=== PATIENT | female | born 1980 | race Caucasian/White ===

== ENCOUNTER 2019-03-16 12:36 | Inpatient (IN) | payer MEDICAID ==
[~2019-03-16] VITALS: Ht 154.9 cm; Wt 112.0 kg
[2019-03-16 13:37] LABS: MEAN CORPUSCULAR HEMOGLOBIN 28.3 pg (27.0-34.8); MEAN CORPUSCULAR HGB CONC 32.2 g/dL (32.4-35.8); MEAN PLATELET VOLUME 8.1 fL (7.4-10.4); PLATELET COUNT 385 x10^3/uL (130-400)
[2019-03-16 13:50] LABS: ALANINE AMINOTRANSFERASE 32 U/L (12-78); ALBUMIN 2.5 g/dL (3.4-5.0); ANION GAP 8 mmol/L (5-15); CALCIUM 9.5 mg/dL (8.5-10.1); CHLORIDE 106 mmol/L (98-107); CREATININE 0.51 mg/dL (0.55-1.02)
[2019-03-16 13:52] LABS: ALKALINE PHOSPHATASE 141 U/L (45-117); BILIRUBIN,TOTAL 0.3 mg/dL (0.2-1.0); TOTAL PROTEIN 6.7 g/dL (6.4-8.2)
[2019-03-16 13:58] LABS: BILIRUBIN, DIRECT < 0.1 mg/dL (0.1-0.2)
[2019-03-16] MEDS ORDERED: ASPI-515 PO (14:00)
[2019-03-16] MEDS ORDERED: PREN1TAB60 PO (14:00)
[2019-03-16] MEDS ORDERED: CALC166. PO (14:05)
[2019-03-16] MEDS ORDERED: b12 PO (14:06)
[2019-03-16] MEDS ORDERED: OMEG1CAP6 PO (14:08)
[2019-03-16] MEDS ORDERED: CHOL500020 PO (14:10)
[2019-03-16 14:48] LABS: BASOPHILS # (AUTO) 0.08 x10^3/uL (0-0.1); BASOPHILS % (AUTO) 0 % (0-1); EOSINOPHILS # (AUTO) 0.38 x10^3/uL (0-0.4); EOSINOPHILS % (AUTO) 2 % (1-7); LYMPHOCYTES # (AUTO) 3.11 x10^3/uL (1-3.4); LYMPHOCYTES % (AUTO) 17 % (22-44); MD SCAN; MONOCYTES # (AUTO) 0.71 x10^3/uL (0.2-0.8); MONOCYTES % (AUTO) 4 % (2-9); NEUTROPHILS % (AUTO) 76 % (42-75)
[2019-03-16 15:10] LABS: MICROSCOPIC INDICATED
[2019-03-16 15:18] VITALS: BP 130/65
[2019-03-16] MEDS ORDERED: INSULIN LISPRO 100 UNIT/ML, 3ML VIAL SQ-INSULIN SCH (17:00)
[2019-03-16] MEDS ORDERED: INSULIN GLARGINE 100 UNITS/ML, PEN SQ-INSULIN SCH (21:00)
[2019-03-16] MEDS: INSULIN GLARGINE 100 UNITS/ML, PEN SQ-INSULIN SCH (21:15)
[2019-03-16 21:43] VITALS: BP 133/59
[2019-03-17] MEDS ORDERED: metFORMIN 500 MG TABLET ONE ×2 (07:20→11:52)
[2019-03-17] MEDS: metFORMIN 500 MG TABLET PO SCH ×2 (07:24→11:58)
[2019-03-17 08:09] VITALS: BP 134/63
[2019-03-17] MEDS ORDERED: ASPIRIN 81 MG TABLET CHEW PO SCH (09:00)
[2019-03-17 11:45] LABS: BASOPHILS # (AUTO) 0.03 x10^3/uL (0-0.1); BASOPHILS % (AUTO) 0 % (0-1); EOSINOPHILS # (AUTO) 0.13 x10^3/uL (0-0.4); EOSINOPHILS % (AUTO) 1 % (1-7); LYMPHOCYTES % (AUTO) 18 % (22-44); MD NO; MEAN CORPUSCULAR HEMOGLOBIN 27.9 pg (27.0-34.8); MEAN CORPUSCULAR HGB CONC 32.3 g/dL (32.4-35.8); MEAN CORPUSCULAR VOLUME 86.4 fL (80-100); MEAN PLATELET VOLUME 8.4 fL (7.4-10.4); MONOCYTES % (AUTO) 4 % (2-9); NEUTROPHILS # (AUTO) 10.74 x10^3/uL (1.8-6.8); NEUTROPHILS % (AUTO) 77 % (42-75); PLATELET COUNT 374 x10^3/uL (130-400); RED BLOOD COUNT 4.26 x10^6/uL (3.82-5.3); RED CELL DISTRIBUTION WIDTH 15.5 % (9.6-15.2)
[2019-03-17] MEDS: INSULIN LISPRO 100 UNITS/ML, PEN SQ-INSULIN SCH (16:30)
[2019-03-17] MEDS: INSULIN GLARGINE 100 UNITS/ML, PEN SQ-INSULIN SCH (21:08)
[2019-03-18] MEDS ORDERED: metFORMIN 500 MG TABLET ONE ×2 (07:38→12:16)
[2019-03-18] MEDS: metFORMIN 500 MG TABLET PO SCH ×2 (07:49→12:19)
[2019-03-18] MEDS: PRENATAL VIT/IRON/FA 1 EACH TABLET HOMEMEDPO SCH (08:03)
[2019-03-18] MEDS: ASPIRIN 81 MG TABLET CHEW HOMEMEDPO SCH (08:04)
[2019-03-18] MEDS ORDERED: INSULIN LISPRO 100 UNITS/ML, PEN SQ-INSULIN SCH (10:00)
[2019-03-18] MEDS: INSULIN LISPRO 100 UNIT/ML, 3ML VIAL SQ-INSULIN SCH (12:20)
[2019-03-18] MEDS: INSULIN LISPRO 100 UNITS/ML, PEN SQ-INSULIN SCH (16:24)
[2019-03-18 19:51] VITALS: BP 134/66
[2019-03-18 19:52] VITALS: BP 134/66
[2019-03-19 07:41] LABS: MEAN CORPUSCULAR HEMOGLOBIN 28.2 pg (27.0-34.8); MEAN CORPUSCULAR HGB CONC 32.2 g/dL (32.4-35.8); MEAN CORPUSCULAR VOLUME 87.6 fL (80-100); MEAN PLATELET VOLUME 8.5 fL (7.4-10.4); PLATELET COUNT 348 x10^3/uL (130-400); RED BLOOD COUNT 4.32 x10^6/uL (3.82-5.3); RED CELL DISTRIBUTION WIDTH 15.7 % (9.6-15.2)
[2019-03-19 07:42] LABS: ALANINE AMINOTRANSFERASE 22 U/L (12-78); ALBUMIN 2.4 g/dL (3.4-5.0); ANION GAP 9 mmol/L (5-15); CHLORIDE 105 mmol/L (98-107); CREATININE 0.53 mg/dL (0.55-1.02)
[2019-03-19 07:43] LABS: ALKALINE PHOSPHATASE 147 U/L (45-117); BILIRUBIN,TOTAL 0.3 mg/dL (0.2-1.0); TOTAL PROTEIN 6.5 g/dL (6.4-8.2)
[2019-03-19] MEDS ORDERED: metFORMIN 500 MG TABLET ONE ×2 (08:05→11:51)
[2019-03-19] MEDS ORDERED: ASPIRIN 81 MG TABLET CHEW ONE (08:06)
[2019-03-19] MEDS ORDERED: PRENATAL VIT/IRON/FA 1 EACH TABLET ONE (08:06)
[2019-03-19] MEDS: metFORMIN 500 MG TABLET PO SCH ×2 (08:10→11:58)
[2019-03-19] MEDS: ASPIRIN 81 MG TABLET CHEW HOMEMEDPO SCH (08:10)
[2019-03-19 08:11] LABS: TOTAL PROTEIN,URINE RANDOM < 5 mg/dL (0-12)
[2019-03-19] MEDS: INSULIN LISPRO 100 UNIT/ML, 3ML VIAL SQ-INSULIN SCH ×2 (09:00→11:58)
[2019-03-19 09:20] LABS: BASOPHILS # (AUTO) 0.09 x10^3/uL (0-0.1); BASOPHILS % (AUTO) 1 % (0-1); EOSINOPHILS # (AUTO) 0.29 x10^3/uL (0-0.4); EOSINOPHILS % (AUTO) 2 % (1-7); LYMPHOCYTES # (AUTO) 2.88 x10^3/uL (1-3.4); LYMPHOCYTES % (AUTO) 16 % (22-44); MD SCAN; MONOCYTES # (AUTO) 0.81 x10^3/uL (0.2-0.8); MONOCYTES % (AUTO) 5 % (2-9); NEUTROPHILS # (AUTO) 13.91 x10^3/uL (1.8-6.8); NEUTROPHILS % (AUTO) 77 % (42-75)
[2019-03-19] MEDS: INSULIN LISPRO 100 UNITS/ML, PEN SQ-INSULIN SCH (16:35)
[2019-03-19 20:18] VITALS: BP 168/74
[2019-03-19] MEDS: INSULIN GLARGINE 100 UNITS/ML, PEN SQ-INSULIN SCH (21:16)
[2019-03-20] MEDS ORDERED: metFORMIN 500 MG TABLET ONE ×2 (07:38→12:21)
[2019-03-20] MEDS: metFORMIN 500 MG TABLET PO SCH ×2 (07:40→12:52)
[2019-03-20] MEDS: ASPIRIN 81 MG TABLET CHEW HOMEMEDPO SCH (07:42)
[2019-03-20] MEDS: PRENATAL VIT/IRON/FA 1 EACH TABLET HOMEMEDPO SCH (07:42)
[2019-03-20] MEDS: INSULIN LISPRO 100 UNIT/ML, 3ML VIAL SQ-INSULIN SCH (12:53)
[2019-03-20] MEDS: INSULIN LISPRO 100 UNITS/ML, PEN SQ-INSULIN SCH (16:41)
[2019-03-20] MEDS: INSULIN GLARGINE 100 UNITS/ML, PEN SQ-INSULIN SCH (21:38)
[2019-03-21] MEDS ORDERED: metFORMIN 500 MG TABLET ONE (07:41)
[2019-03-21] MEDS: metFORMIN 500 MG TABLET PO SCH (07:44)
[2019-03-21] MEDS: ASPIRIN 81 MG TABLET CHEW HOMEMEDPO SCH (07:44)
[2019-03-21] MEDS: PRENATAL VIT/IRON/FA 1 EACH TABLET HOMEMEDPO SCH (07:44)
[2019-03-21 07:45] VITALS: BP 126/78
[2019-03-21] MEDS ORDERED: NEWBORN KIT ONE (10:50)
[2019-03-21] MEDS ORDERED: METOCLOPRAMIDE 5 MG/ML, 2ML ONE (10:51)
[2019-03-21] MEDS ORDERED: OXYTOCIN 30U/ 0.9% NaCL 500ML 500 ML ONE ×2 (10:51→15:16)
[2019-03-21] MEDS ORDERED: SODIUM CITRATE/CITRIC ACID 30 ML UDC ONE (10:51)
[2019-03-21] MEDS ORDERED: morphine SULFATE/PF 0.5 MG/ML, 10ML ONE (10:57)
[2019-03-21] MEDS ORDERED: LACTATED RINGERS 1,000 ML IVBOLUS ONE (11:00)
[2019-03-21] MEDS ORDERED: SODIUM CITRATE/CITRIC ACID 30 ML UDC PO ONE (11:00)
[2019-03-21] MEDS ORDERED: EPINEPHRINE 1 MG/ML, 1ML ONE (11:08)
[2019-03-21] MEDS ORDERED: METOCLOPRAMIDE 5 MG/ML, 2ML IV ONE (11:30)
[2019-03-21] MEDS ORDERED: SODIUM CHLORIDE 0.9% 1,000 ML IV SCH (11:30)
[2019-03-21 11:34] LABS: MEAN CORPUSCULAR HEMOGLOBIN 28.3 pg (27.0-34.8); MEAN CORPUSCULAR HGB CONC 32.8 g/dL (32.4-35.8); MEAN CORPUSCULAR VOLUME 86.4 fL (80-100); MEAN PLATELET VOLUME 8.3 fL (7.4-10.4); PLATELET COUNT 344 x10^3/uL (130-400); RED BLOOD COUNT 4.53 x10^6/uL (3.82-5.3); RED CELL DISTRIBUTION WIDTH 16.1 % (9.6-15.2)
[2019-03-21] MEDS ORDERED: LACTATED RINGERS 1,000 ML IV SCH ×2 (11:37→13:21)
[2019-03-21 12:28] LABS: BASOPHILS # (AUTO) 0.05 x10^3/uL (0-0.1); BASOPHILS % (AUTO) 0 % (0-1); EOSINOPHILS % (AUTO) 1 % (1-7); LYMPHOCYTES # (AUTO) 2.77 x10^3/uL (1-3.4); LYMPHOCYTES % (AUTO) 16 % (22-44); MD NO; MONOCYTES # (AUTO) 0.87 x10^3/uL (0.2-0.8); MONOCYTES % (AUTO) 5 % (2-9); NEUTROPHILS # (AUTO) 13.14 x10^3/uL (1.8-6.8); NEUTROPHILS % (AUTO) 78 % (42-75)
[2019-03-21] MEDS ORDERED: EPHEDRINE 50 MG/ML, 1ML ONE (12:31)
[2019-03-21] MEDS ORDERED: OXYTOCIN 10 UNITS/ML, 1ML ONE (12:31)
[2019-03-21] MEDS ORDERED: ONDANSETRON 2MG/ML, 2ML ONE ×4 (12:31→13:28)
[2019-03-21] MEDS ORDERED: WATER-INJECTION,STERILE 10 ML IV ONE (12:31)
[2019-03-21] MEDS ORDERED: GLYCOPYRROLATE 0.2MG/1ML, 5ML ONE (12:31)
[2019-03-21] MEDS ORDERED: CEFAZOLIN 1,000 MG ONE (12:31)
[2019-03-21] MEDS ORDERED: PHENYLEPHRINE 10 MG/ML ONE (12:31)
[2019-03-21] MEDS ORDERED: MORPHINE SULFATE 4 MG/ML, 1ML IVPush PRN (13:30)
[2019-03-21] MEDS ORDERED: DIPH,PERTUSS(ACELL),TET VAC/PF NC IM-VACC PRN (13:30)
[2019-03-21] MEDS ORDERED: SIMETHICONE 80 MG CHEW TAB PO PRN (13:30)
[2019-03-21] MEDS ORDERED: MISOPROSTOL 200 MCG TABLET PR PRN (13:30)
[2019-03-21] MEDS ORDERED: MEASLES,MUMPS&RUBELLA VACC/PF 0.5 ML SQ-VACC PRN (13:30)
[2019-03-21] MEDS ORDERED: ONDANSETRON 2MG/ML, 2ML IV PRN (13:30)
[2019-03-21] MEDS ORDERED: OXYcodone/APAP 5/325MG TABLET PO PRN (13:30)
[2019-03-21] MEDS ORDERED: ACETAMINOPHEN 325 MG TABLET PO PRN ×2 (13:30)
[2019-03-21] MEDS ORDERED: DIPHENHYDRAMINE 50 MG/ML, 1ML ONE ×2 (13:32→16:27)
[2019-03-21] MEDS: INSULIN LISPRO 100 UNITS/ML, PEN SQ-INSULIN SCH ×2 (15:00→20:57)
[2019-03-21] MEDS: LACTATED RINGERS 1,000 ML IV SCH ×2 (15:12→23:21)
[2019-03-21] MEDS ORDERED: KETOROLAC 30 MG/1 ML ONE (15:16)
[2019-03-21] MEDS: OXYTOCIN 30U/ 0.9% NaCL 500ML 500 ML IV SCH ×2 (15:20→23:21)
[2019-03-21] MEDS: KETOROLAC 30 MG/1 ML IV SCH ×2 (15:24→20:56)
[2019-03-21] MEDS ORDERED: morphine SULFATE 10 MG/ML, 1ML ONE (16:26)
[2019-03-21] MEDS ORDERED: PROMETHAZINE 25 MG/ML, 1ML IV PRN (16:30)
[2019-03-21] MEDS ORDERED: DIPHENHYDRAMINE 50 MG/ML, 1ML IVPush ONE (16:30)
[2019-03-21 20:44] LABS: MD YES; MEAN CORPUSCULAR HEMOGLOBIN 28.4 pg (27.0-34.8); MEAN CORPUSCULAR HGB CONC 32.2 g/dL (32.4-35.8); MEAN CORPUSCULAR VOLUME 88.1 fL (80-100); MEAN PLATELET VOLUME 8.3 fL (7.4-10.4); PLATELET COUNT 292 x10^3/uL (130-400); RED CELL DISTRIBUTION WIDTH 16.1 % (9.6-15.2)
[2019-03-21] MEDS: ENOXAPARIN 40 MG/0.4 ML SQ SCH (20:49)
[2019-03-21 20:54] LABS: LYMPH#(MANUAL) 1.54 x10^3/uL (1-3.4); LYMPHS% (MANUAL) 8 % (22-44); MONOS#(MANUAL) 0.77 x10^3/uL (0.3-2.7); MONOS% (MANUAL) 4 % (2-9); SEG#(MANUAL) 16.98 x10^3/uL (1.8-6.8); SEGS% (MANUAL) 88 % (42-75)
[2019-03-21 20:55] LABS: <PLATELET ESTIMATE> ADEQUATE; ANISOCYTOSIS 1+; LARGE PLATELETS 1+; POLYCHROMASIA 1+
[2019-03-22] MEDS ORDERED: KETOROLAC 30 MG/1 ML ONE ×2 (03:32→08:47)
[2019-03-22] MEDS ORDERED: OXYcodone/APAP 5/325MG TABLET ONE ×3 (03:33→14:42)
[2019-03-22] MEDS: OXYcodone/APAP 5/325MG TABLET PO PRN ×4 (03:35→20:13)
[2019-03-22] MEDS: KETOROLAC 30 MG/1 ML IV SCH ×4 (03:36→22:49)
[2019-03-22 08:30] VITALS: BP 134/65
[2019-03-22] MEDS: ASPIRIN 81 MG TABLET CHEW HOMEMEDPO SCH (08:33)
[2019-03-22] MEDS: PRENATAL VIT/IRON/FA 1 EACH TABLET PO SCH (08:34)
[2019-03-22] MEDS: OXYTOCIN 30U/ 0.9% NaCL 500ML 500 ML IV SCH ×2 (09:21→18:22)
[2019-03-22] MEDS: LACTATED RINGERS 1,000 ML IV SCH ×2 (09:21→18:22)
[2019-03-22 11:45] VITALS: BP 132/60
[2019-03-22] MEDS: INSULIN LISPRO 100 UNITS/ML, PEN SQ-INSULIN SCH ×3 (15:02→23:14)
[2019-03-22 20:00] VITALS: BP 182/74
[2019-03-22] MEDS: DOCUSATE 100 MG CAPSULE PO PRN (20:12)
[2019-03-22 20:45] VITALS: BP 147/64
[2019-03-22] MEDS: ENOXAPARIN 40 MG/0.4 ML SQ SCH (20:45)
[2019-03-22 21:01] LABS: MEAN CORPUSCULAR HEMOGLOBIN 28.5 pg (27.0-34.8); MEAN CORPUSCULAR HGB CONC 32.2 g/dL (32.4-35.8); MEAN CORPUSCULAR VOLUME 88.5 fL (80-100); MEAN PLATELET VOLUME 8.4 fL (7.4-10.4); PLATELET COUNT 315 x10^3/uL (130-400); RED BLOOD COUNT 3.76 x10^6/uL (3.82-5.3); RED CELL DISTRIBUTION WIDTH 16.4 % (9.6-15.2)
[2019-03-22 21:10] LABS: ALANINE AMINOTRANSFERASE 26 U/L (12-78); ALBUMIN 2.1 g/dL (3.4-5.0); ANION GAP 6 mmol/L (5-15); CALCIUM 9.5 mg/dL (8.5-10.1); CHLORIDE 107 mmol/L (98-107); CREATININE 0.58 mg/dL (0.55-1.02)
[2019-03-22 21:15] LABS: ALKALINE PHOSPHATASE 121 U/L (45-117); BILIRUBIN,TOTAL 0.3 mg/dL (0.2-1.0); TOTAL PROTEIN 6.1 g/dL (6.4-8.2)
[2019-03-22 21:47] LABS: BASOPHILS # (AUTO) 0.05 x10^3/uL (0-0.1); BASOPHILS % (AUTO) 0 % (0-1); EOSINOPHILS # (AUTO) 0.47 x10^3/uL (0-0.4); EOSINOPHILS % (AUTO) 2 % (1-7); LYMPHOCYTES # (AUTO) 2.12 x10^3/uL (1-3.4); LYMPHOCYTES % (AUTO) 10 % (22-44); MD SCAN; MONOCYTES # (AUTO) 0.91 x10^3/uL (0.2-0.8); MONOCYTES % (AUTO) 4 % (2-9); NEUTROPHILS # (AUTO) 17.37 x10^3/uL (1.8-6.8); NEUTROPHILS % (AUTO) 83 % (42-75)
[2019-03-23] VITALS (7 sets, daily range): BP systolic 121–154; BP diastolic 63–87
[2019-03-23] MEDS: OXYcodone/APAP 5/325MG TABLET PO PRN (03:39)
[2019-03-23] MEDS: KETOROLAC 30 MG/1 ML IV SCH ×2 (05:11→11:13)
[2019-03-23] MEDS: LACTATED RINGERS 1,000 ML IV SCH ×2 (05:21→15:21)
[2019-03-23] MEDS: OXYTOCIN 30U/ 0.9% NaCL 500ML 500 ML IV SCH ×2 (05:21→15:21)
[2019-03-23] MEDS: ASPIRIN 81 MG TABLET CHEW HOMEMEDPO SCH (08:35)
[2019-03-23] MEDS: PRENATAL VIT/IRON/FA 1 EACH TABLET PO SCH (08:35)
[2019-03-23] MEDS: DOCUSATE 100 MG CAPSULE PO PRN ×2 (08:35→21:16)
[2019-03-23] MEDS ORDERED: HYDROmorphone 2MG TABLET PO PRN ×3 (09:00→09:27)
[2019-03-23 10:16] LABS: BASOPHILS # (AUTO) 0.03 x10^3/uL (0-0.1); BASOPHILS % (AUTO) 0 % (0-1); EOSINOPHILS # (AUTO) 0.45 x10^3/uL (0-0.4); EOSINOPHILS % (AUTO) 3 % (1-7); LYMPHOCYTES # (AUTO) 2.21 x10^3/uL (1-3.4); LYMPHOCYTES % (AUTO) 13 % (22-44); MD NO; MEAN CORPUSCULAR HEMOGLOBIN 28.4 pg (27.0-34.8); MEAN CORPUSCULAR HGB CONC 31.9 g/dL (32.4-35.8); MEAN PLATELET VOLUME 8.6 fL (7.4-10.4); MONOCYTES # (AUTO) 0.92 x10^3/uL (0.2-0.8); MONOCYTES % (AUTO) 5 % (2-9); NEUTROPHILS # (AUTO) 13.92 x10^3/uL (1.8-6.8); NEUTROPHILS % (AUTO) 79 % (42-75); PLATELET COUNT 348 x10^3/uL (130-400); RED BLOOD COUNT 3.63 x10^6/uL (3.82-5.3); RED CELL DISTRIBUTION WIDTH 16.6 % (9.6-15.2)
[2019-03-23] MEDS: metFORMIN XR 500 MG TAB.ER.24H PO SCH ×2 (11:15→21:16)
[2019-03-23] MEDS ORDERED: IBUPROFEN 600 MG TABLET PO PRN (13:30)
[2019-03-23] MEDS: INSULIN LISPRO 100 UNITS/ML, PEN SQ-INSULIN SCH (16:52)
[2019-03-23] MEDS: ACETAMINOPHEN 500 MG TABLET PO SCH ×3 (16:56→23:11)
[2019-03-23] MEDS: IBUPROFEN 600 MG TABLET PO SCH ×3 (16:56→23:11)
[2019-03-23] MEDS: ENOXAPARIN 40 MG/0.4 ML SQ SCH (21:16)
[2019-03-24] MEDS: OXYTOCIN 30U/ 0.9% NaCL 500ML 500 ML IV SCH ×3 (01:21→21:21)
[2019-03-24] MEDS: LACTATED RINGERS 1,000 ML IV SCH ×3 (01:21→21:21)
[2019-03-24 05:00] VITALS: BP 147/79
[2019-03-24] MEDS: IBUPROFEN 600 MG TABLET PO SCH ×3 (05:09→17:51)
[2019-03-24] MEDS: ACETAMINOPHEN 500 MG TABLET PO SCH ×3 (05:09→17:51)
[2019-03-24 09:00] VITALS: BP 156/76
[2019-03-24] MEDS: metFORMIN XR 500 MG TAB.ER.24H PO SCH ×2 (09:52→21:12)
[2019-03-24] MEDS: ASPIRIN 81 MG TABLET CHEW HOMEMEDPO SCH (09:52)
[2019-03-24] MEDS: PRENATAL VIT/IRON/FA 1 EACH TABLET PO SCH (09:52)
[2019-03-24] MEDS: DOCUSATE 100 MG CAPSULE PO PRN ×2 (09:52→21:12)
[2019-03-24 12:30] VITALS: BP 136/69
[2019-03-24 16:00] VITALS: BP 152/72
[2019-03-24 19:30] VITALS: BP 145/64
[2019-03-24] MEDS: ENOXAPARIN 40 MG/0.4 ML SQ SCH (21:12)
[2019-03-25] MEDS: ACETAMINOPHEN 500 MG TABLET PO SCH ×4 (00:57→19:33)
[2019-03-25] MEDS: IBUPROFEN 600 MG TABLET PO SCH ×4 (00:57→19:33)
[2019-03-25 01:00] VITALS: BP 151/70
[2019-03-25 06:00] VITALS: BP 138/75
[2019-03-25] MEDS: OXYTOCIN 30U/ 0.9% NaCL 500ML 500 ML IV SCH ×2 (07:21→17:21)
[2019-03-25] MEDS: LACTATED RINGERS 1,000 ML IV SCH ×2 (07:21→17:21)
[2019-03-25 08:00] VITALS: BP 141/65
[2019-03-25] MEDS: DOCUSATE 100 MG CAPSULE PO PRN ×2 (08:06→19:33)
[2019-03-25] MEDS: ASPIRIN 81 MG TABLET CHEW HOMEMEDPO SCH (08:06)
[2019-03-25] MEDS: metFORMIN XR 500 MG TAB.ER.24H PO SCH ×2 (08:06→21:19)
[2019-03-25] MEDS: PRENATAL VIT/IRON/FA 1 EACH TABLET PO SCH (09:00)
[2019-03-25 12:30] VITALS: BP 143/64
[2019-03-25 16:30] VITALS: BP 144/67
[2019-03-25 19:30] VITALS: BP 159/77
[2019-03-25] MEDS: ENOXAPARIN 30 MG/0.3 ML SQ SCH (21:30)
[2019-03-26 01:30] VITALS: BP 145/66
[2019-03-26] MEDS: ACETAMINOPHEN 500 MG TABLET PO SCH ×3 (01:43→14:56)
[2019-03-26] MEDS: IBUPROFEN 600 MG TABLET PO SCH ×3 (01:43→14:48)
[2019-03-26] MEDS: LACTATED RINGERS 1,000 ML IV SCH ×2 (03:21→13:21)
[2019-03-26] MEDS: OXYTOCIN 30U/ 0.9% NaCL 500ML 500 ML IV SCH ×2 (03:21→13:21)
[2019-03-26 05:45] VITALS: BP 144/68
[2019-03-26 07:29] LABS: CREATININE 0.56 mg/dL (0.55-1.02)
[2019-03-26 07:47] VITALS: BP 157/72
[2019-03-26] MEDS: metFORMIN XR 500 MG TAB.ER.24H PO SCH (08:08)
[2019-03-26] MEDS: ASPIRIN 81 MG TABLET CHEW HOMEMEDPO SCH (08:08)
[2019-03-26] MEDS: DOCUSATE 100 MG CAPSULE PO PRN (08:09)
[2019-03-26] MEDS: PRENATAL VIT/IRON/FA 1 EACH TABLET PO SCH (08:10)
[2019-03-26] MEDS: ENOXAPARIN 30 MG/0.3 ML SQ SCH (08:11)
[2019-03-26] MEDS ORDERED: IBUP-1222 PO (16:42)
== END 2019-03-26 17:24 | disposition home or self-care (01) | DRG 787 ==
LOC: 2NE 12:36 → 2NW 03-22 15:50
PROVIDERS: ADMIT Obstetrics & Gynecology; ATTEND Obstetrics & Gynecology
PROC: 10D00Z1 Extraction of Products of Conception, Low, Open Approach (ICD-10-PCS; principal; 2019-03-21)
PROC: 0DNW0ZZ Release Peritoneum, Open Approach (ICD-10-PCS; 2019-03-21)
PROC: 0UN90ZZ Release Uterus, Open Approach (ICD-10-PCS; 2019-03-21)
DX: O13.4 Gestational [pregnancy-induced] hypertension without significant proteinuria, complicating childbirth (principal); O30.133 Triplet pregnancy, trichorionic/triamniotic, third trimester; O24.429 Gestational diabetes mellitus in childbirth, unspecified control; O34.211 Maternal care for low transverse scar from previous cesarean delivery; O36.5930 Maternal care for other known or suspected poor fetal growth, third trimester, not applicable or unspecified; O76 Abnormality in fetal heart rate and rhythm complicating labor and delivery; O99.214 Obesity complicating childbirth; E66.01 Morbid (severe) obesity due to excess calories; N73.6 Female pelvic peritoneal adhesions (postinfective); Z3A.32 32 weeks gestation of pregnancy; Z86.14 Personal history of Methicillin resistant Staphylococcus aureus infection; Z37.51 Triplets, all liveborn; Z31.0 Encounter for reversal of previous sterilization; Z23 Encounter for immunization
CPT/HCPCS: 36415; 74018; 76815; 80053; 81001; 81050; 82248; 82565; 82570; 82803; 82962; 84156; 84550; 85025; 86850; 86900; 86923; 87081; 88307; G0378; J0171; J0690; J1650; J1885; J2274; J2405; J2550; J1200; J1815; J1817; J2270; J2370; J2590; J2765; J7030; J7120

== ENCOUNTER → 2019-03-30 | Outpatient (CLI) | payer MEDICAID ==
[~2019-03-30] MED LIST: ASPI-515 PO; CALC166. PO; CHOL500020 PO; IBUP-1222 PO; OMEG1CAP6 PO; PREN1TAB60 PO; b12 PO
== END | disposition home or self-care (01) ==
LOC: WOUND 13:05
PROVIDERS: ATTEND Family Medicine
DX: T81.31XA Disruption of external operation (surgical) wound, not elsewhere classified, initial encounter (principal); E11.21 Type 2 diabetes mellitus with diabetic nephropathy; I10 Essential (primary) hypertension; E66.01 Morbid (severe) obesity due to excess calories; Z68.41 Body mass index [BMI] 40.0-44.9, adult; Y83.8 Other surgical procedures as the cause of abnormal reaction of the patient, or of later complication, without mention of misadventure at the time of the procedure; Y92.89 Other specified places as the place of occurrence of the external cause
CPT/HCPCS: 97597; 99215

== ENCOUNTER → 2019-04-03 | Outpatient (CLI) | payer MEDICAID | END | disposition home or self-care (01) | LOC: WOUND 08:40 | PROVIDERS: ATTEND Nurse Practitioner Family | DX: T81.31XD Disruption of external operation (surgical) wound, not elsewhere classified, subsequent encounter (principal); E11.21 Type 2 diabetes mellitus with diabetic nephropathy; I10 Essential (primary) hypertension; E66.01 Morbid (severe) obesity due to excess calories; Z68.41 Body mass index [BMI] 40.0-44.9, adult; Y83.8 Other surgical procedures as the cause of abnormal reaction of the patient, or of later complication, without mention of misadventure at the time of the procedure | CPT/HCPCS: 99212 ==

== ENCOUNTER → 2019-04-06 | Outpatient (CLI) | payer MEDICAID | END | disposition home or self-care (01) | LOC: WOUND 08:42 | PROVIDERS: ATTEND Family Medicine | DX: T81.31XD Disruption of external operation (surgical) wound, not elsewhere classified, subsequent encounter (principal); E11.21 Type 2 diabetes mellitus with diabetic nephropathy; I10 Essential (primary) hypertension; E66.01 Morbid (severe) obesity due to excess calories; Z68.41 Body mass index [BMI] 40.0-44.9, adult; Y83.8 Other surgical procedures as the cause of abnormal reaction of the patient, or of later complication, without mention of misadventure at the time of the procedure | CPT/HCPCS: 97597 ==

== ENCOUNTER 2019-04-09 11:19 | Outpatient (CLI) | payer MEDICAID | END 2019-04-09 23:59 | disposition home or self-care (01) | LOC: WOUND 11:19 | PROVIDERS: ATTEND Surgery | DX: T81.31XD Disruption of external operation (surgical) wound, not elsewhere classified, subsequent encounter (principal); E11.21 Type 2 diabetes mellitus with diabetic nephropathy; I10 Essential (primary) hypertension; E66.01 Morbid (severe) obesity due to excess calories; Z68.41 Body mass index [BMI] 40.0-44.9, adult; Y83.8 Other surgical procedures as the cause of abnormal reaction of the patient, or of later complication, without mention of misadventure at the time of the procedure | CPT/HCPCS: 99213 ==

== ENCOUNTER 2019-04-11 08:11 | Outpatient (CLI) | payer MEDICAID | END 2019-04-11 23:59 | disposition home or self-care (01) | LOC: WOUND 08:11 | PROVIDERS: ATTEND Surgery | DX: T81.31XD Disruption of external operation (surgical) wound, not elsewhere classified, subsequent encounter (principal); E11.21 Type 2 diabetes mellitus with diabetic nephropathy; I10 Essential (primary) hypertension; E66.01 Morbid (severe) obesity due to excess calories; Z68.41 Body mass index [BMI] 40.0-44.9, adult; Y83.8 Other surgical procedures as the cause of abnormal reaction of the patient, or of later complication, without mention of misadventure at the time of the procedure | CPT/HCPCS: 99212 ==

== ENCOUNTER 2019-04-13 08:11 | Outpatient (CLI) | payer MEDICAID | END 2019-04-13 23:59 | disposition home or self-care (01) | LOC: WOUND 08:11 | PROVIDERS: ATTEND Family Medicine | DX: T81.31XD Disruption of external operation (surgical) wound, not elsewhere classified, subsequent encounter (principal); E11.21 Type 2 diabetes mellitus with diabetic nephropathy; I10 Essential (primary) hypertension; E66.01 Morbid (severe) obesity due to excess calories; Z68.41 Body mass index [BMI] 40.0-44.9, adult; Y83.8 Other surgical procedures as the cause of abnormal reaction of the patient, or of later complication, without mention of misadventure at the time of the procedure | CPT/HCPCS: 97602 ==

== ENCOUNTER 2019-04-17 07:43 | Outpatient (CLI) | payer MEDICAID | END 2019-04-17 23:59 | disposition home or self-care (01) | LOC: WOUND 07:43 | PROVIDERS: ATTEND Internal Medicine Cardiovascular Disease | DX: O90.0 Disruption of cesarean delivery wound (principal); S31.109D Unspecified open wound of abdominal wall, unspecified quadrant without penetration into peritoneal cavity, subsequent encounter; O24.93 Unspecified diabetes mellitus in the puerperium; O13.5 Gestational [pregnancy-induced] hypertension without significant proteinuria, complicating the puerperium; O99.215 Obesity complicating the puerperium; X58.XXXD Exposure to other specified factors, subsequent encounter | CPT/HCPCS: 99212 ==

== ENCOUNTER → 2019-04-20 | Outpatient (CLI) | payer MEDICAID | END | disposition home or self-care (01) | LOC: WOUND 07:49 | PROVIDERS: ATTEND Family Medicine | DX: T81.31XD Disruption of external operation (surgical) wound, not elsewhere classified, subsequent encounter (principal); E11.21 Type 2 diabetes mellitus with diabetic nephropathy; I10 Essential (primary) hypertension; E66.01 Morbid (severe) obesity due to excess calories; Z68.41 Body mass index [BMI] 40.0-44.9, adult; Y83.8 Other surgical procedures as the cause of abnormal reaction of the patient, or of later complication, without mention of misadventure at the time of the procedure | CPT/HCPCS: 99213 ==